=== PATIENT | female | born 2000 | race Caucasian/White ===

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

== ENCOUNTER → 2022-12-11 | Outpatient (CLI) | payer OTHER | LOC: M PLALAB 15:25 | PROVIDERS: ATTEND Advanced Practice Midwife | DX: Z34.01 Encounter for supervision of normal first pregnancy, first trimester (principal) ==

== ENCOUNTER → 2022-12-11 | Outpatient (REF) | payer OTHER | LOC: M PLALAB 15:18 | PROVIDERS: ATTEND Advanced Practice Midwife | DX: Z53.9 Procedure and treatment not carried out, unspecified reason (principal) ==

== ENCOUNTER → 2023-01-03 | Outpatient (REF) | payer OTHER | LOC: M LAB REF 16:14 | PROVIDERS: ATTEND Physician Assistant | DX: J02.9 Acute pharyngitis, unspecified (principal) ==

== ENCOUNTER → 2023-02-07 | Outpatient (CLI) | payer OTHER | LOC: M WHC 13:03 | PROVIDERS: ATTEND Specialist | DX: Z34.02 Encounter for supervision of normal first pregnancy, second trimester (principal); Z36.89 Encounter for other specified antenatal screening; Z3A.19 19 weeks gestation of pregnancy ==

== ENCOUNTER → 2023-03-13 | Outpatient (CLI) | payer OTHER | LOC: M WHC 10:38 | PROVIDERS: ATTEND Obstetrics & Gynecology | DX: Z34.02 Encounter for supervision of normal first pregnancy, second trimester (principal); Z3A.24 24 weeks gestation of pregnancy ==

== ENCOUNTER → 2023-03-25 | Outpatient (CLI) | payer OTHER ==
[2023-03-25 18:18] LABS: HEMATOCRIT 33.2 % (36.0-47.0); HEMOGLOBIN 10.9 g/dl (12.0-15.5); MEAN CORPUSCULAR HEMOGLOBIN 28.7 pg (27.0-33.0); MEAN CORPUSCULAR HGB CONC 32.8 g/dl (32.0-36.5); MEAN CORPUSCULAR VOLUME 87.4 fl (80.0-96.0); PLATELET COUNT, AUTOMATED 236 10^3/uL (150-450); WHITE BLOOD COUNT 9.6 10^3/uL (4.0-10.0)
[2023-03-25 18:22] LABS: GLUCOSE CHALLENGE TEST 1 HOUR 79 MG/DL (LESS THAN 140)
[2023-03-25 18:51] LABS: HIV 1&2 SCREEN CENTAUR NEGATIVE (NEGATIVE)
[2023-03-26 15:33] LABS: GC DNA AMPLIFICATION NEGATIVE (NEGATIVE)
== END ==
LOC: M PLALAB 13:50
PROVIDERS: ATTEND Advanced Practice Midwife
DX: Z34.01 Encounter for supervision of normal first pregnancy, first trimester (principal)

== ENCOUNTER → 2023-03-25 | Outpatient (CLI) | payer OTHER | LOC: M PLALAB 13:48 | PROVIDERS: ATTEND Obstetrics & Gynecology | DX: Z34.02 Encounter for supervision of normal first pregnancy, second trimester (principal) ==

== ENCOUNTER → 2023-05-23 | Outpatient (CLI) | payer OTHER | LOC: M WHC 14:46 | PROVIDERS: ATTEND Obstetrics & Gynecology | DX: O26.843 Uterine size-date discrepancy, third trimester (principal) ==

== ENCOUNTER → 2023-06-03 | Outpatient (REF) | payer OTHER | LOC: M PLALAB 15:46 | PROVIDERS: ATTEND Obstetrics & Gynecology | DX: Z34.80 Encounter for supervision of other normal pregnancy, unspecified trimester (principal) ==

== ENCOUNTER → 2024-12-25 | Outpatient (REF) | payer OTHER ==
[~2024-12-25] MED LIST changes: +ZOLO100T PO
== END ==
LOC: M PLALAB 15:12
PROVIDERS: ATTEND Obstetrics & Gynecology
DX: Z01.419 Encounter for gynecological examination (general) (routine) without abnormal findings (principal)

== ENCOUNTER → 2025-06-17 | Outpatient (REF) | payer OTHER | LOC: M LAB REF 17:18 | PROVIDERS: ATTEND Physician Assistant | DX: J02.9 Acute pharyngitis, unspecified (principal) ==